=== PATIENT | male | born 1955 | race Asian ===

== ENCOUNTER 2020-04-26 01:25 | Emergency (ER) | payer BC, SELFPAY ==
--- NOTE | 2020-04-26 01:35 | ED.GENADULT ---
HPI - General Adult General Chief complaint: Nasal Problem Stated complaint: nose bleed since yesterday morning Time Seen by Provider: 04/26/20 01:31 Source: patient Mode of arrival: Ambulatory Limitations: no limitations History of Present Illness HPI narrative: 65-year-old male. On aspirin but no other anticoagulation here for evaluation of a nosebleed. He states that the left side of his nose has been bleeding off and on since yesterday. No trauma. States that he has had this in the past and he states that his blood counts became so low that he needed a blood transfusion so he was concerned about that. He has tried some ice at home without any improvement. No problems breathing. Related Data Home Medications Medication Instructions Recorded Confirmed allopurinol QDAY #0 11/01/16 atorvastatin [Lipitor] QDAY #0 11/01/16 carvedilol [Coreg] BID #0 11/01/16 felodipine QDAY #0 11/01/16 losartan QDAY #0 11/01/16 omeprazole BID #0 11/01/16 Allergies Allergy/AdvReac Type Severity Reaction Status Date / Time No Known Drug Allergies Allergy Verified 04/26/20 01:36 Review of Systems Constitutional Constitutional: Denies fever(s) and Denies headache(s) ENT Ears, Nose, Mouth, and Throat: Denies headache(s) Comments: Nose bleed Cardiovascular Cardiovascular: Denies dyspnea Respiratory Respiratory: Denies cough and Denies dyspnea Integumentary/Breasts Skin/Breast: Denies rash Neurologic Neurologic: Denies behavioral changes and Denies headache(s) Psychiatric Psychiatric: Denies behavioral changes Hematologic/Lymphatic Hematologic/Lymphatic: Denies easy bleeding and Denies easy bruising Patient History Medical History Hypertension (Acute) Social History Smoking Status: Never smoker Exam Initial Vital Signs Initial Vital Signs: Vital Signs Temperature 97.4 F L 04/26/20 01:37 Pulse Rate 59 L 04/26/20 01:37 Respiratory Rate 18 04/26/20 01:37 Blood Pressure 156/92 H 04/26/20 01:37 Pulse Oximetry 98 04/26/20 01:37 Const General: cooperative and comfortable Limitations: mental status not altered HENNC Head: normal to inspection and normocephalic Nose: external nose normal, septum normal, No epistaxis and No nasal discharge Face and sinus: normal facial exam Resp Effort & Inspection: normal respiratory effort Skin Lesions: no lesions Rashes: no rashes Neuro General: patient alert and patient awake Cognition: normal cognition Speech: speech normal Extrem General: normal to inspection and capillary refill normal Course Orders Ordered: ED Orders 04/26/20 01:56 Complete Blood Count AUTO DIFF Stat Discontinued Medications Oxymetazoline HCl (Afrin) 2 sprays NASAL NOW ONE Stop: 04/26/20 01:40 Last Admin: 04/26/20 01:52 Dose: 2 sprays Documented by: CHRISTIAN Vital Signs Vital signs: Vital Signs - 8 hr 04/26/20 01:37 Temperature 97.4 F L Pulse Rate 59 L Respiratory Rate 18 Blood Pressure 156/92 H Pulse Oximetry 98 Medical Decision Making Lab Data Lab results reviewed: Yes I reviewed the patient's lab results. Result diagrams: 04/26/20 01:56 Labs: Lab Results 04/26/20 Range/Units 01:56 WBC 9.8 (4.5-11.0) X10^3/uL RBC 4.33 L (4.5-5.9) X10^6/uL Hgb 14.2 (13.5-17.5) g/dL Hct 40.3 L (41-53) % MCV 93.1 (80-100) fL MCH 32.8 (26-34) PG MCHC 35.3 (30-36) % RDW 12.9 (11.6-14.8) % Plt Count 209 (150-400) X10^3/uL Neut % (Auto) 67.1 (50-75) % Lymph % (Auto) 20.3 L (25-40) % Charlton % (Auto) 9.4 (3-14) % Eos % (Auto) 1.5 L (2-4) % Baso % (Auto) 1.7 (0-2) % Neut # (Auto) 6600 (8091-7057) /uL Lymph # (Auto) 2000 (4539-3357) /uL Charlton # (Auto) 900 (0-900) /uL Eos # (Auto) 100 (0-450) /uL Baso # (Auto) 200 H (0-100) /uL MDM Narrative Medical decision making narrative: It appears the patient has a small clot in the anterior portion the left naris. No active bleeding. No septal hematoma. His blood counts here unremarkable. Had no bleeding here in the ER. He was sent home with Afrin and a nose clamp and instructions on how to use this and when to return. He expressed understanding and agreement. Discharge Plan Departure Patient Disposition: Home Clinical Impression: Epistaxis Instructions: DI for Nosebleed Activity Restrictions/Additional Instructions: If your nose bleeds at home use the Afrin and a nasal clamp like we discussed. If it is still bleeding after the process that we discussed please return to the emergency department. Contact your primary provider for follow-up. Prescriptions: No Action carvedilol [Coreg] 12.5 MG tablet BID Qty: 0 RF: 0 omeprazole 20 MG capsule,delayed release(DR/EC) BID Qty: 0 RF: 0 allopurinol 300 MG tablet QDAY Qty: 0 RF: 0 atorvastatin [Lipitor] 20 MG tablet QDAY Qty: 0 RF: 0 felodipine 10 MG tablet extended release 24 hr QDAY Qty: 0 RF: 0 losartan 100 MG tablet QDAY Qty: 0 RF: 0
[2020-04-26 01:37] VITALS: BP 156/92; PULSE 59; RESP 18; TEMP 36.3; O2SAT 98; BMI 32.6
[2020-04-26] MEDS: OXYMETAZOLINE NASAL SPRAY 30 ML 2 SPRAYS NASAL (01:52)
[2020-04-26 02:04] LABS: Add Manual Diff / Slide Review NO; Basophils Absolute Auto 200 /uL (0-100); Basophils Percent Auto 1.7 % (0-2); Eosinophils Absolute Auto 100 /uL (0-450); Eosinophils Percent Auto 1.5 % (2-4); Hematocrit 40.3 % (41-53); Hemoglobin 14.2 g/dL (13.5-17.5); Lymphocytes Absolute Auto 2000 /uL (1100-4500); Lymphocytes Percent Auto 20.3 % (25-40); Mean Corpuscular HGB Conc 35.3 % (30-36); Mean Corpuscular Hemoglobin 32.8 PG (26-34); Mean Corpuscular Volume 93.1 fL (80-100); Monocytes Absolute Auto 900 /uL (0-900); Monocytes Percent Auto 9.4 % (3-14); Neutrophils Absolute Auto 6600 /uL (1500-7000); Neutrophils Percent Auto 67.1 % (50-75); Platelet Count 209 X10^3/uL (150-400); Red Blood Cell Count 4.33 X10^6/uL (4.5-5.9); Red Cell Distribution Width 12.9 % (11.6-14.8); White Blood Cell Count 9.8 X10^3/uL (4.5-11.0)
--- NOTE | 2020-04-26 02:04 | PC.NURSE ---
Decision has been made to airlift pt to .
== END 2020-04-26 02:18 | disposition home or self-care (01) ==
PROVIDERS: Emergency Provider Emergency Medicine
DX: R04.0 Epistaxis (principal)
CPT/HCPCS: 36415; 85025; 99283; 99284